=== PATIENT | female | born 1995 | race Asian ===

== ENCOUNTER 2018-06-25 16:26 | Emergency (ER) | payer SELFPAY ==
[~2018-06-25] VITALS: Ht 157.5 cm; Wt 74.1 kg
[2018-06-25 18:48] VITALS: BP 90/56
== END 2018-06-25 22:27 | disposition left against medical advice (07) ==
LOC: EMS 16:27
DX: R42 Dizziness and giddiness (principal); R51 Headache; Z53.21 Procedure and treatment not carried out due to patient leaving prior to being seen by health care provider